=== PATIENT | female | born 1950 | race Caucasian/White ===

== ENCOUNTER → 2020-01-22 | Outpatient (REF) | payer MEDICARE, BC | LOC: M LAB REF 09:00 | PROVIDERS: ATTEND Physician Assistant | DX: C44.212 Basal cell carcinoma of skin of right ear and external auricular canal (principal) | CPT/HCPCS: 11102; 88305; G0463 ==

== ENCOUNTER → 2020-02-20 | Outpatient (REF) | payer MEDICARE, BC | LOC: M LAB REF 10:09 | PROVIDERS: ATTEND Dermatology | DX: C44.212 Basal cell carcinoma of skin of right ear and external auricular canal (principal); L90.5 Scar conditions and fibrosis of skin ==